=== PATIENT | female | born 1950 ===

== ENCOUNTER 2020-05-04 14:54 | Emergency (ER) | payer MEDICARE, MEDICAID ==
--- NOTE | 2020-05-04 16:19 | RAD ---
Exam: Chest one view HISTORY:Deformity Comparison: 03/07/2020 FINDINGS: Cardiac silhouette:Normal cardiac silhouette. Stable left-sided defibrillator. Aorta: Unremarkable Pulmonary vessels: Slightly prominent Costophrenic angles: Clear LUNGS: Patchy interstitial opacities, unchanged. Chronic findings are favored. Pneumothorax: None Osseous abnormalities: None IMPRESSION: Chronic lung parenchymal changes.
--- NOTE | 2020-05-04 16:41 | ULT ---
US Soft Tissue Chest Wall History: Hematoma Comparison: None. Findings: In the anterior right chest wall is a very large ovoid mass which appears to be a retractin g hematoma with internal lacy echoes. Mass measures at least 13 cm in greatest dimension with a depth of 5 cm. No definite solid component is appreciated. Impression: Likely large right anterior chest wall hematoma. Close clinical and ultrasound follow-up recommended. Correlation with patient's coagulation panel may also be beneficial as well as any evidence of anterior chest wall trauma.
== END 2020-05-04 19:41 ==
LOC: ERS 14:54
DX: N64.89 Other specified disorders of breast (principal); E78.5 Hyperlipidemia, unspecified; E78.00 Pure hypercholesterolemia, unspecified; I10 Essential (primary) hypertension; E11.9 Type 2 diabetes mellitus without complications; J44.9 Chronic obstructive pulmonary disease, unspecified; I25.10 Atherosclerotic heart disease of native coronary artery without angina pectoris; K21.9 Gastro-esophageal reflux disease without esophagitis; F41.9 Anxiety disorder, unspecified; F03.90 Unspecified dementia, unspecified severity, without behavioral disturbance, psychotic disturbance, mood disturbance, and anxiety; F31.9 Bipolar disorder, unspecified; Z79.82 Long term (current) use of aspirin; Z79.899 Other long term (current) drug therapy
CPT/HCPCS: 71045